=== PATIENT | male | born 1980 | race American Indian/Alaskan Native ===

== ENCOUNTER 2019-12-28 10:51 | Emergency (ER) | payer SELFPAY ==
--- NOTE | 2019-12-28 11:08 | Emergency Department Report ---
HPI - General Chief Complaint: Hyperglycemia Time Seen by Provider: 12/28/19 10:59 - HPI HPI: This is a 39-year-old -[place] male who presents to the emergency department via EMS from work with complaint of hyperglycemia. Patient also says that he has some midsternal chest soreness, abdominal soreness, and had an episode of nausea and vomiting this morning. Patient has a history of insulin- dependent diabetes, hypertension, stage IV chronic kidney disease, and diabetic neuropathy. 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 The patient took his insulin last night, but did not take any this morning. He did eat breakfast and then went to work and forgot his insulin. Patient was found to have a blood sugar of close to 600 with EMS. He received 500 cc of IV fluid in route. No recent travel or sick contacts at home. He denies any fever, ch ills, shortness of breath, diarrhea, constipation, dysuria. ED Review of Systems ROS: Stated complaint: LOW BLOOD SUGAR Other details as noted in HPI Comment: All other systems reviewed and negative Constitutional: denies: chills, fever Eyes: denies: eye pain, vision change ENT: denies: ear pain, throat pain Respiratory: denies: cough, shortness of breath Cardiovascular: chest pain (Soreness). denies: palpitations Gastrointestinal: abdominal pain (Soreness), nausea, vomiting. denies: diarrhea, constipation Genitourinary: denies: dysuria, discharge Musculoskeletal: denies: back pain, arthralgia Skin: denies: rash, lesions Neurological: denies: headache, weakness Physical Exam - Physical Exam Physical Exam: GENERAL: The patient is well-developed well-nourished. HENT: Normocephalic. Atraumatic. Patient has moist mucous membranes. EYES: Extraocular motions are intact. Pupils equal reactive to light bi laterally. NECK: Supple. Trachea is midline. CHEST/LUNGS: Clear to auscultation. There is no respiratory distress noted. There is reproducible midsternal tenderness to palpation. No crepitus or def ormity. HEART/CARDIOVASCULAR: Regular. There is no tachycardia. There is no murmur. ABDOMEN: Abdomen is soft. Mild epigastric tenderness to palpation. No guarding. Patient has normal bowel sounds. There is no abdominal distention. SKIN: Skin is warm and dry. NEURO: The patient is awake, alert, and oriented. The patient is cooperative. The patient has no focal neurologic deficits. Normal speech. MUSCULOSKELETAL: There is no tenderness or deformity. There is no limitation range of motion. ED Course - Reevaluation(s) Reevaluation #1: 12/28/19 14:02 Lab Results 12/28/19 12/28/19 12/28/19 Range/Units 11:05 11:11 11:11 WBC 7.3 (4.5-11.0) K/mm3 RBC 3.55 L (3.65-5.03) M/mm3 Hgb 11.1 L (11.8-15.2) gm/dl Hct 33.0 L (35.5-45.6) % MCV 93 (84-94) fl MCH 31 (28-32) pg MCHC 34 (32-34) % RDW 12.6 L (13.2-15.2) % Plt Count 434 (140-440) K/mm3 Lymph % (Auto) 8.6 L (13.4-35.0) % Turner % (Auto) 3.6 (0.0-7.3) % Eos % (Auto) 0.2 (0.0-4.3) % Baso % (Auto) 0.8 (0.0-1.8) % Lymph # (Auto) 0.6 L (1.2-5.4) K/mm3 Turner # (Auto) 0.3 (0.0-0.8) K/mm3 Eos # (Auto) 0.0 (0.0-0.4) K/mm3 Baso # (Auto) 0.1 (0.0-0.1) K/mm3 Seg Neutrophils % 86.8 H (40.0-70.0) % Seg Neutrophils # 6.3 (1.8-7.7) K/mm3 VBG pH (7.320-7.420) Sodium 138 (137-145) mmol/L Potassium 4.4 (3.6-5.0) mmol/L Chloride 104.7 (98-107) mmol/L Carbon Dioxide 24 (22-30) mmol/L Anion Gap 14 mmol/L BUN 43 H (9-20) mg/dL Creatinine 3.2 H (0.8-1.3) mg/dL Estimated GFR 26 ml/min BUN/Creatinine Ratio 13 % Glucose 316 H (75-100) mg/dL POC Glucose (70-105) mg/dL Ketones Quantitative Negative (Negative) Calcium 8.7 (8.4-10.2) mg/dL Total Bilirubin 0.30 (0.1-1.2) mg/dL AST 26 (5-40) units/L ALT 33 (7-56) units/L Alkaline Phosphatase 126 (35-129) units/L Total Protein 6.2 L (6.3-8.2) g/dL Albumin 3.1 L (3.9-5) g/dL Albumin/Globulin Ratio 1.0 % Lipase 46 (13-60) units/L Urine Color Colorless (Yellow) Urine Turbidity Clear (Clear) Urine pH 7.0 (5.0-7.0) Ur Specific [place] 1.014 (1.003-1.030) Urine Protein >500 (Negative) mg/dL Urine Glucose (UA) >=500 (Negative) mg/dL Urine Ketones Tr (Negative) mg/dL Urine Blood Neg (Negative) Urine Nitrite Neg (Negative) Urine Bilirubin Neg (Negative) Urine Urobilinogen < 2.0 (<2.0) mg/dL Ur Leukocyte Esterase Neg (Negative) Urine WBC (Auto) 1.0 (0.0-6.0) /HPF Urine RBC (Auto) 1.0 (0.0-6.0) /HPF U Epithel Cells (Auto) < 1.0 (0-13.0) /HPF 12/28/19 12/28/19 12/28/19 Range/Units 11:11 11:14 13:26 WBC (4.5-11.0) K/mm3 RBC (3.65-5.03) M/mm3 Hgb (11.8-15.2) gm/dl Hct (35.5-45.6) % MCV (84-94) fl MCH (28-32) pg MCHC (32-34) % RDW (13.2-15.2) % Plt Count (140-440) K/mm3 Lymph % (Auto) (13.4-35.0) % Turner % (Auto) (0.0-7.3) % Eos % (Auto) (0.0-4.3) % Baso % (Auto) (0.0-1.8) % Lymph # (Auto) (1.2-5.4) K/mm3 Turner # (Auto) (0.0-0.8) K/mm3 Eos # (Auto) (0.0-0.4) K/mm3 Baso # (Auto) (0.0-0.1) K/mm3 Seg Neutrophils % (40.0-70.0) % Seg Neutrophils # (1.8-7.7) K/mm3 VBG pH 7.266 L 7.310 L (7.320-7.420) Sodium (137-145) mmol/L Potassium (3.6-5.0) mmol/L Chloride (98-107) mmol/L Carbon Dioxide (22-30) mmol/L Anion Gap mmol/L BUN (9-20) mg/dL Creatinine (0.8-1.3) mg/dL Estimated GFR ml/min BUN/Creatinine Ratio % Glucose (75-100) mg/dL POC Glucose 391 H (70-105) mg/dL Ketones Quantitative (Negative) Calcium (8.4-10.2) mg/dL Total Bilirubin (0.1-1.2) mg/dL AST (5-40) units/L ALT (7-56) units/L Alkaline Phosphatase (35-129) units/L Total Protein (6.3-8.2) g/dL Albumin (3.9-5) g/dL Albumin/Globulin Ratio % Lipase (13-60) units/L Urine Color (Yellow) Urine Turbidity (Clear) Urine pH (5.0-7.0) Ur Specific [place] (1.003-1.030) Urine Protein (Negative) mg/dL Urine Glucose (UA) (Negative) mg/dL Urine Ketones (Negative) mg/dL Urine Blood (Negative) Urine Nitrite (Negative) Urine Bilirubin (Negative) Urine Urobilinogen (<2.0) mg/dL Ur Leukocyte Esterase (Negative) Urine WBC (Auto) (0.0-6.0) /HPF Urine RBC (Auto) (0.0-6.0) /HPF U Epithel Cells (Auto) (0-13.0) /HPF ED Medical Decision Making - Lab Data Result diagrams: 12/28/19 11:11 12/28/19 11:11 - EKG Data -: EKG Interpreted by Me EKG shows normal: sinus rhythm, axis, intervals, QRS complexes (LVH), ST-T waves Rate: normal - EKG Data When compared to previous EKG there are: previous EKG unavailable Interpretation: LVH - Medical Decision Making This patient presents to the emergency department with complaint of uncontrolled diabetes after missing his morning doses of insulin. Patient complains of some chest and abdominal soreness. Heart and lung sounds are normal to auscultation and there is reproducible midsternal chest wall and epigastric tenderness to palpation. There is no crepitus or deformity. The abdomen is soft, nondistended and nontoxic in appearance. Chest x-ray does not show any pneumonia, pneumothorax, focal consolidation, or any other acute process. Abd ominal x-ray shows nonspecific nonobstructive bowel gas. The patient's Accu-Chek with EMS showed the blood sugar to be close to 600. The Accu-Chek upon arrival here was 390 and the serum glucose was about 315. Initially the patient did have some venous acidosis, but there is no elevation in anion gap, and the patient is not producing any ketones, and therefore the patient does not appear consistent with diabetic ketoacidosis. He was given some IV fluid resuscitation and the venous pH was rechecked and was trending upwards and essentially within normal limits. I believe the initial mild ac idosis was secondary to the patient's significantly elevated blood sugar from earlier this morning. Patient has received close to 1 L of IV fluid resuscitation and his blood sugar should be down into the 200s. Patient deferred receiving IV insulin as he says that it "bottoms me out." The patient is awake, alert and in no acute distress and appears safe for discharge home at this time. He will go home to take his Humalog as previously prescribed. He has been given an outpatient primary care physician in clinic for follow-up. We discussed staying away from foods that are high in sugar, carbohydrates and starches, as well as keeping a blood sugar log. The patient will return to the emergency department with any worsening of his symptoms or with any acute distress. Critical Care Time: No Critical care attestation.: If time is entered above; I have spent that time in minutes in the direct care of this critically ill patient, excluding procedure time. ED Disposition Clinical Impression: Hyperglycemia, Chest wall pain Hypertension Qualifiers: Hypertension type: essential hypertension Qualified Code(s): I10 - Essential (primary) hypertension Disposition: TO HOME OR SELFCARE Is pt being admited?: No Condition: Stable Instructions: Hyperglycemia, Blood Glucose Monitoring, Adult, Chest Wall Pain, Hypertension, Adult, Chest Pain (ED), Hypertension (ED) Additional Instructions: Please follow-up with a primary care physician in the next few days. Continue taking your home medications, including your insulin, as previously prescribed. Try to stay away from foods that are high in sugar, carbohydrates and starches. Keep a blood sugar log. Return to the emergency department with any worsening of your symptoms, new or concerning symptoms not addressed during this current emergency department visit, or with any acute distress. Referrals: PRIMARY MD DANA [Primary Care Provider] - 3-5 Days PAUL LIN MD [Staff Physician] - 3-5 Days [facility] [Provider Group] - 3-5 Days Forms: Work/School Release Form(ED) Time of Disposition: 13:57
[2019-12-28 11:43] LABS: Basophils # (Auto) 0.1 K/mm3 (0.0-0.1); Basophils % (Auto) 0.8 % (0.0-1.8); Eosinophils % (Auto) 0.2 % (0.0-4.3); Hemoglobin 11.1 gm/dl (11.8-15.2); Lymphocytes # (Auto) 0.6 K/mm3 (1.2-5.4); Lymphocytes % (Auto) 8.6 % (13.4-35.0); Mean Corpuscular HGB Conc 34 % (32-34); Mean Corpuscular Volume 93 fl (84-94); Monocytes # (Auto) 0.3 K/mm3 (0.0-0.8); Monocytes % (Auto) 3.6 % (0.0-7.3); Platelet Count 434 K/mm3 (140-440); Red Blood Count 3.55 M/mm3 (3.65-5.03); Red Cell Distribution Width 12.6 % (13.2-15.2)
[2019-12-28 12:01] LABS: Bilirubin,Urine NEG (Negative); Blood,Urine NEG (Negative); Color,Urine Colorless (Yellow); Urobilinogen,Urine < 2.0 mg/dL (<2.0)
[2019-12-28 12:07] LABS: Protein,Urine >500 mg/dL (Negative)
[2019-12-28 12:13] LABS: Alanine Aminotransferase 33 units/L (7-56); Albumin 3.1 g/dL (3.9-5); BUN/Creatinine Ratio 13; Blood Urea Nitrogen 43 mg/dL (9-20); Calcium 8.7 mg/dL (8.4-10.2); Hemolysis Index 3
[2019-12-28] MEDS ORDERED: SODIUM CHLORIDE 0.9% 500 ML 500 ML IV ONE (12:14)
[2019-12-28] MEDS ORDERED: INSULIN REGULAR, HUMAN 100 UNITS/1 ML ONE (12:30)
--- NOTE | 2019-12-28 12:35 | XRay Report ---
ABDOMEN 4 VIEW(S) INDICATION / CLINICAL INFORMATION: CP, Abd pain. COMPARISON: None available. FINDINGS: TUBES / LINES: None. BOWEL GAS PATTERN: No significant abnormality. FREE AIR / EXTRALUMINAL GAS: None seen. ADDITIONAL FINDINGS: No significant additional findings. CHEST: Visualized chest shows no significant abnormality. IMPRESSION: 1. No significant abnormality. Signer Name: Han Conley MD Signed: 12/28/2019 12:30 PM Workstation Name: [id number]
[2019-12-28] MEDS ORDERED: INSULIN REGULAR, HUMAN 100 UNIT/ML 3ML VIAL IV SCH (13:00)
[2019-12-28 14:33] VITALS: BP 167/94
== END 2019-12-28 14:42 | disposition home or self-care (01) ==
LOC: ED 10:51
DX: R73.9 Hyperglycemia, unspecified (principal); R07.89 Other chest pain; I10 Essential (primary) hypertension
CPT/HCPCS: 36415; 74022; 80053; 81001; 82010; 82805; 82962; 83690; 85025; 93005; 99285; J7040; J1815